=== PATIENT | male | born 1975 | race African-American/Black ===

== ENCOUNTER 2020-08-15 08:49 | Emergency (ER) | payer SELFPAY | END 2020-08-15 10:51 | disposition home or self-care (01) | LOC: CSHERS 08:49 | DX: J18.9 Pneumonia, unspecified organism (principal); I10 Essential (primary) hypertension; Z87.891 Personal history of nicotine dependence | CPT/HCPCS: 71046 ==

== ENCOUNTER 2022-07-21 13:57 | Outpatient (CLI) | payer BC, OTHER | END 2022-07-21 13:58 | disposition home or self-care (01) | LOC: CSHMRI 13:57 | PROVIDERS: ATTEND Orthopaedic Surgery Hand Surgery | DX: R29.898 Other symptoms and signs involving the musculoskeletal system (principal); Z91.81 History of falling; M51.36 Other intervertebral disc degeneration, lumbar region; M48.061 Spinal stenosis, lumbar region without neurogenic claudication; M47.816 Spondylosis without myelopathy or radiculopathy, lumbar region; Q67.5 Congenital deformity of spine | CPT/HCPCS: 72146; 72148 ==